=== PATIENT | male | born 1970 | race Caucasian/White ===

== ENCOUNTER 2024-10-25 09:28 | Inpatient (IN) ==
--- NOTE | 2024-10-25 09:42 | Emergency Department Note ---
Impression & Plan Abdominal pain, Splenic infarct, Encounter for smoking cessation counseling ED Provider Note NAME: MAIA GRAVES AGE: 53 SEX: M : 1970 ARRIVES VIA: Walk-In INFORMANT: Patient, ED PROVIDER(S): Lucas Bonner MD CHIEF COMPLAINT: Abdominal pain, splenic infarct MEDICAL DECISION MAKING: Patient presents is he was seen here yesterday and left AGAINST MEDICAL ADVICE prior to further evaluation and treatment due to concerns for splenic infarct. Repeat blood work was obtained. I did speak with the on-call hospitalist service in light of the patient's recent CT.. Given the patient's recent CT and inflammatory stranding ESR and CRP were added along with CT angiography of the abdomen pelvis. Patient Franklin shows a normal white count H&H and platelet count kidney function is unremarkable. ESR elevated at 40. CRP elevated 8.37. Urinalysis without evidence of obvious infection. 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 Dissection could appear similar however considered less likely. Given these findings I did speak with vascular surgery who stated that with regard to the vasculitis would recommend steroid management. With regard to the splenic infarct does recommend anticoagulation. Patient was ordered heparin. I did speak the on-call hospitalist service Dr. Stone and the patient was admitted to the medicine service. I counseled patient on smoking cessation for 3 minutes. Treatment options discussed and resources provided. Patient was receptive. Critical Care: I have personally spent 45 minutes of critical care time in direct management of this patient. This includes bedside care, interpretation of diagnostic studies, and testing, discussion with consultants, patient, and family members, and other require inpatient management activities. This 45 minutes is in excess of all separately billable procedures. Discussion w/ other healthcare providers: Dr. Skinner vascular surgery Dr. Stone inpatient medicine service Prior /Outside records reviewed: I did review the patient's blood work from yesterday which was reassuring patient has a normal white count H&H and platelet count kidney function was unremarkable with normal bicarb. Urinalysis without evidence of obvious infection. Patient CT of the abdomen pelvis showed moderate wedge-shaped hypoenhancing area at the inferior pole of the spleen suggestive of infarct. Patient also did have indeterminant flame Tory fat stranding seen about the celiac axis extending around the origin of the hepatic and splenic arteries may be reactive or reflective of vasculitis or possible irritation from the median arcuate ligament. No high-grade stenosis consider further evaluation with CTA. Differential diagnosis: Appendicitis, testicular torsion, UTI, diverticulitis, obstruction, renal colic, mesenteric adenitis, enteririts, PUD, pancreatitis, biliary pathology, hernia, volvulus, constipation, as well as other pathologies were considered. Diagnostics, as interpreted by me: ECG: None Cardiac monitoring: An order was placed for continuous cardiac monitoring. The monitor shows a rate of 85 with sinus rhythm. Patient was placed on pulse oximetry Medical decision rules: None Imaging studies: I informally interpreted the patient's CT angiography of the abdomen pelvis does not show evidence of obvious obstruction with formal report to follow. HPI: Patient presents due to concern for abdominal pain. Patient states he is currently without any significant pain but had had pain beginning on Monday was seen here yesterday diagnosed with a splenic infarct but left AGAINST MEDICAL ADVICE until he can come back today. Patient states he has had no blood in the stool no vomiting. The patient states that he was seen recently through an office or urgent care visit was told that he might have a "stomach bug." Patient states that he does have a prior history of diverticulitis but does not really report any blood in stool. Patient does smoke and chew tobacco. The patient does drink alcohol. Patient states that he does have a primary care physician through [facility] but is not seeing them in about 4 years time. Patient denies any chest pains or shortness of breath. Patient denies any falls or trauma. He does do heavy lifting for work but denies any obvious bulges masses or hernias. No testicular or scrotal swelling or pain no dysuria or hematuria. Patient states he currently does take some aspirin. Patient states that for his abdominal pain he did take some aspirin earlier in the week which did help with the symptoms. Patient does report a prior history of Lyme status post treatment. PAST MEDICAL HISTORY: See Below PAST SURGICAL HISTORY: See Below SOCIAL HISTORY: See Below HOME MEDICATIONS: See Below ALLERGIES: See Below VITALS: See Below PHYSICAL EXAMINATION: GENERAL: NAD, non-toxic. EYE EXAM: Normal conjunctiva. PERRL, no anisocoria and EOM's grossly intact w/o pain. OROPHARYNX: Moist mucus membranes, grossly normal dentition. NECK: Trachea midline, no stridor. Supple, no nuchal rigidity, no adenopathy, non-tender. No signs of meningismus. FROM of the neck with good chin to chest and neck extension. LUNGS: Clear to auscultation. Normal chest wall mechanics. HEART: NSR, no MRG. ABDOMEN: Abdomen soft, non-tender, no masses, no rebound or guarding. BACK: No CVA TTP. SKIN: No rashes and no bruising. UPPER EXTREMITIES: Upper extremities are grossly normal. LOWER EXTREMITIES: Grossly normal, no edema. NEURO EXAM: A&O x3, cranial nerves II-XII grossly intact, normal speech, moves all 4 extremities. Past Med/Surg History Problem List (Updated 10/25/24 @ 18:00 by Lucas Bonner MD) Encounter for smoking cessation counseling (Acute) Splenic infarct (Acute) Abdominal pain (Acute) Medical History Knee injury Lyme disease Rheumatic fever Diverticulitis Surgical History H/O tooth extraction Social History Smoking Status: Current every day smoker Tobacco Type: Cigarettes Hx Alcohol Use: Yes (8 to 10/day) Preferred Language: Malay Feels Safe at Home: Yes Allergies Allergies Allergy/AdvReac Type Severity Reaction Status Date / Time No Known Allergies Allergy Verified 07/16/22 21:50 Home Meds Home Medications Medication Instructions Recorded Confirmed omeprazole 20 mg capsule,delayed 20 mg PO BID 10/24/24 10/25/24 release ondansetron HCl 8 mg tablet 8 mg PO TID PRN Nausea 10/24/24 10/25/24 aspirin 1 tab PO DIRECTED 10/25/24 10/25/24 Results & Data (ED) Vital Signs Vital Signs - 24 hr 10/25/24 09:33 10/25/24 10:11 10/25/24 10:25 Temperature 36 C L Temperature Source Temporal Artery Scan Pulse Rate 76 75 Pulse Rate from SpO2 Sensor Respiratory Rate 18 Respiratory Effort / Characteristics Non-Labored Respiratory Depth Normal Respiratory Pattern Regular Blood Pressure 154/90 H Blood Pressure Mean 111 Pulse Oximetry 99 Oxygen Delivery Method Room Air Room Air Sepsis Recent Fever Within 48 Hours No Sepsis New/Unexplained Change in Mental Status N/A Sepsis Action Taken by Nursing No Action Required 10/25/24 11:00 10/25/24 11:15 10/25/24 12:00 Temperature Temperature Source Pulse Rate 69 70 65 Pulse Rate from SpO2 Sensor 69 69 65 Respiratory Rate 23 23 24 Respiratory Effort / Characteristics Respiratory Depth Respiratory Pattern Blood Pressure 148/99 H 150/90 H 142/93 H Blood Pressure Mean 115 110 101 Pulse Oximetry 98 98 Oxygen Delivery Method Room Air Room Air Sepsis Recent Fever Within 48 Hours Sepsis New/Unexplained Change in Mental Status Sepsis Action Taken by Nursing 10/25/24 12:30 Temperature Temperature Source Pulse Rate 82 Pulse Rate from SpO2 Sensor 82 Respiratory Rate 28 H Respiratory Effort / Characteristics Respiratory Depth Respiratory Pattern Blood Pressure 129/91 Blood Pressure Mean 117 Pulse Oximetry Oxygen Delivery Method Sepsis Recent Fever Within 48 Hours Sepsis New/Unexplained Change in Mental Status Sepsis Action Taken by [facility] Medications Current Medication List: was personally reviewed by me Laboratory Data Attestation: I reviewed the patient's lab results. 10/25/24 10:27 10/25/24 10:27 Lab Results 10/25/24 Range/Units 10:27 WBC 7.05 (4.8-10.8) K/ul RBC 5.23 (4.70-6.10) M/uL Hgb 17.4 (14.0-18.0) g/dl Hct 48.7 (42.0-52.0) % MCV 93.1 (80.0-100.0) fL MCH 33.3 (25.0-34.0) pg MCHC 35.7 (32.0-36.0) g/dL RDW Std Deviation 41.2 (36.4-46.3) fL RDW Coeff of Candi 12.0 (11.5-14.5) % Plt Count 243 (130-400) K/uL MPV 10.1 (9.4-12.4) fL Immature Gran % (Auto) 0.1 % Neut % (Auto) 65.5 % Lymph % (Auto) 22.0 % Bailey % (Auto) 9.4 % Eos % (Auto) 2.1 % Baso % (Auto) 0.9 % Neut # (Auto) 4.62 (1.40-6.50) K/uL Lymph # (Auto) 1.55 (1.20-3.40) K/uL Bailey # (Auto) 0.66 H (0.11-0.59) K/uL Eos # (Auto) 0.15 (0.00-0.50) K/uL Baso # (Auto) 0.06 (0.00-0.20) K/uL Immature Gran # (Auto) 0.01 (0.01-0.20) K/uL ESR 40 H (0-20) mm/hr PT 10.9 (9.0-12.0) Seconds INR 1.0 (0.9-1.1) Sodium 135 L (136-145) mmol/L Potassium 4.0 (3.5-5.1) mmol/L Chloride 98 (98-107) mmol/L Carbon Dioxide 27 (21-32) mmol/L Anion Gap 10 (3-11) BUN 12 (6-23) mg/dl Creatinine 0.89 (0.6-1.4) mg/dl Est Cr Clr Drug Dosing 97.1 ml/min eGFR 103.11 BUN/Creatinine Ratio 13.5 (10-20) Glucose 91 (70-99(Fasting)) mg/dl Calcium 9.9 (8.6-10.3) mg/dl Total Bilirubin 1.1 H (0.2-1.0) mg/dl AST 18 (13-39) U/L ALT 17 (7-52) U/L Alkaline Phosphatase 64 (34-104) U/L C-Reactive Protein 8.37 H (0-0.5) mg/dl Total Protein 8.3 (6.0-8.3) gm/dl Albumin 4.6 (3.4-5.0) gm/dl Globulin 3.7 (2.5-4.0) gm/dl Albumin/Globulin Ratio 1.2 (0.9-2) Lipase 28 (11-82) U/L Administered Medications Heparin Sodium/Dextrose (Heparin 01672 Unit/500 Ml D5w) 25,000 units in 500 mls @ 27 mls/hr IV .[id number] [facility]; Protocol Stop: 11/24/24 15:14 Last Admin: 10/25/24 16:19 Dose: 1,350 units/hr, 27 mls/hr Documented By: BENJAMIN Co-signed By: MARGOT Discontinued Medications Folic Acid (Folic Acid 1 Mg Tab) 1 mg PO ONE ONE Stop: 10/25/24 15:31 Last Admin: 10/25/24 16:14 Dose: 1 mg Documented By: BENJAMIN Heparin Sodium/Dextrose (Heparin Iv Adult Wt-Based Standard *No* Initial Bolus Protocol) 1 each IV ONE STA; Protocol Stop: 10/25/24 14:54 Last Admin: 10/25/24 16:26 Dose: Not Given Documented By: BENJAMIN Ioversol (Optiray 320 125ml) 120 ml IV ONCE ONE Stop: 10/25/24 11:29 Last Admin: 10/25/24 11:29 Dose: 120 ml Documented By: LUCIANO Methylprednisolone (Methylprednisolone 125 Mg/2 Ml Vial) 60 mg IV NOW STA Stop: 10/25/24 14:49 Last Admin: 10/25/24 16:13 Dose: 60 mg Documented By: BENJAMIN Thiamine HCl (Thiamine Hcl 100 Mg Tab) 100 mg PO ONE ONE Stop: 10/25/24 15:31 Last Admin: 10/25/24 16:13 Dose: 100 mg Documented By: BENJAMIN Imaging Data Radiologist's Impression: Abdomen/Pelvis CTA 10/25/24 10:18 CT angio abdomen pelvis w con CLINICAL HISTORY: 53 years-old Male with splenic infarct, stranding at celiac on prior CT acute upper abdominal pain in a patient with an acute splenic infarct COMPARISON STUDY: 10/24/2024 TECHNIQUE: Following the IV administration of 120 cc of Optiray, CT angiogram of the abdomen and pelvis was performed from the lung bases the proximal femora. Images are reviewed in the axial, sagittal, and coronal planes. 3-D MIPS images are created and assessed. All measurements were obtained according to NASCET criteria. IV contrast was administered without complication. A dose lowering technique was utilized adhering to the principles of ALARA. CT DOSE: 750.41 mGy.cm FINDINGS: CTA: The imaged heart is unremarkable. The descending thoracic aorta is within normal limits. Mild atherosclerosis of the abdominal aorta without aneurysm or dissection. Patent iliac and imaged femoral arteries. Unremarkable appearance of the superior mesenteric, renal and inferior mesenteric arteries. There is wall thickening with adjacent inflammatory stranding involving the celiac trunk and origins of the splenic and common hepatic arteries these vessels also are irregular with areas of multifocal mild stenosis. There is a saccular 11 x 8 x 5 mm aneurysm noted involving the caudal aspect of the celiac trunk on image 68 series 3. No evidence of aneurysm rupture. CT ABDOMEN/pelvis: Clear lung bases. No pneumatosis or pneumoperitoneum. Acute splenic infarct appears unchanged in size measuring approximately 4 cm. Unremarkable spleen, adrenal glands and pancreas. Vicarious excretion of contrast in the gallbladder with probable mild fundal adenomyomatosis. There are a few subcentimeter hepatic cysts. Liver is otherwise unremarkable. Unremarkable kidneys without hydronephrosis. Decompressed urinary bladder with wall thickening. Unremarkable prostate. No lymphadenopathy. No bowel obstruction or bowel wall thickening. Gastric fundal diverticulum measures 2 cm. Colonic diverticulosis without acute diverticulitis. Normal appendix. No acute fracture. IMPRESSION: 1. Unchanged size and appearance of the acute splenic infarct 2. 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 An acute dissection could appear similarly however considered less likely. 3. Colonic diverticulosis without acute diverticulitis. ACT 112: Negative or not required by law. The above report was generated using voice recognition software. It may contain grammatical, syntax or spelling errors. Electronically signed by: Dominik Miramontes M.D. 10/25/2024 12:17 PM Discharge Plan Visit Data Chief Complaint: Abdominal Pain Stated Complaint: ABDOMINAL PAIN, SPLENIC INFARCT ED Provider: Lucas Bonner Discharge Problem: Abdominal pain, Splenic infarct, Encounter for smoking cessation counseling Discharge Instructions Interventions: ED Discharge Assessment Last Done: 10/25/24 16:41 Discharge Problem: Abdominal pain Qualifiers: Abdominal location: unspecified location Qualified Code(s): R10.9 - Unspecified abdominal pain
[2024-10-25 10:52] LABS: Basophils # (auto) 0.06 K/uL (0.00-0.20); Basophils % (auto) 0.9 %; Eosinophils # (auto) 0.15 K/uL (0.00-0.50); Eosinophils % (auto) 2.1 %; Hematocrit (blood only) 48.7 % (42.0-52.0); Hemoglobin 17.4 g/dl (14.0-18.0); Immature Granulocytes # (auto) 0.01 K/uL (0.01-0.20); Immature Granulocytes % (auto) 0.1 %; Lymphocytes # (auto) 1.55 K/uL (1.20-3.40); Mean Corpuscular Hemoglobin 33.3 pg (25.0-34.0); Mean Corpuscular Hgb Conc 35.7 g/dL (32.0-36.0); Mean Corpuscular Volume 93.1 fL (80.0-100.0); Mean Platelet Volume 10.1 fL (9.4-12.4); Monocytes # (auto) 0.66 K/uL (0.11-0.59); Monocytes % (auto) 9.4 %; Neutrophils # (auto) 4.62 K/uL (1.40-6.50); Neutrophils % (auto) 65.5 %; Platelet Count 243 K/uL (130-400); RDW Standard Deviation 41.2 fL (36.4-46.3); Red Blood Count 5.23 M/uL (4.70-6.10); White Blood Count 7.05 K/ul (4.8-10.8)
[2024-10-25 11:03] LABS: Albumin Globulin Ratio 1.2 (0.9-2); Albumin Level 4.6 gm/dl (3.4-5.0); BUN Creatinine Ratio 13.5 (10-20); Bilirubin,Total 1.1 mg/dl (0.2-1.0); C Reactive Protein 8.37 mg/dl (0-0.5); Calcium 9.9 mg/dl (8.6-10.3); Creatinine Clr Calc Pharmacy 97.1 ml/min; Globulin 3.7 gm/dl (2.5-4.0); Total Protein 8.3 gm/dl (6.0-8.3)
[2024-10-25] MEDS: OPTIRAY 320 125ml IV ONE (11:29)
--- NOTE | 2024-10-25 12:36 | CT Scan Report ---
CT angio abdomen pelvis w con CLINICAL HISTORY: 53 years-old Male with splenic infarct, stranding at celiac on prior CT acute up per abdominal pain in a patient with an acute splenic infarct COMPARISON STUDY: 10/24/2024 TECHNIQUE: Following the IV administration of 120 cc of Optiray, CT angiogram of the abdomen and pelv is was performed from the lung bases the proximal femora. Images are reviewed in the axial, sagittal, and coronal planes. 3-D MIPS images are created and assessed. All measurements were obtained accordi ng to NASCET criteria. IV contrast was administered without complication. A dose lowering technique was utilized adhering to the principles of ALARA. CT DOSE: 750.41 mGy.cm FINDINGS: CTA: The imaged heart is unremarkable. The descending thoracic aorta is within normal limits. Mild at herosclerosis of the abdominal aorta without aneurysm or dissection. Patent iliac and imaged femoral arteries. Unremarkable appearance of the superior mesenteric, renal and inferior mesenteric arteries. There is wall thickening with adjacent inflammatory stranding involving the celiac trunk and origins of the splenic and common hepatic arteries these vessels also are irregular with areas of multifocal mild stenosis. There is a saccular 11 x 8 x 5 mm aneurysm noted involving the caudal aspect of the c eliac trunk on image 68 series 3. No evidence of aneurysm rupture. CT ABDOMEN/pelvis: Clear lung bases. No pneumatosis or pneumoperitoneum. Acute splenic infarct appear s unchanged in size measuring approximately 4 cm. Unremarkable spleen, adrenal glands and pancreas. V icarious excretion of contrast in the gallbladder with probable mild fundal adenomyomatosis. There ar e a few subcentimeter hepatic cysts. Liver is otherwise unremarkable. Unremarkable kidneys without hydronephrosis. Decompressed urinary bladder with wall thickening. Unrem arkable prostate. No lymphadenopathy. No bowel obstruction or bowel wall thickening. Gastric fundal d iverticulum measures 2 cm. Colonic diverticulosis without acute diverticulitis. Normal appendix. No a cute fracture. IMPRESSION: 1. Unchanged size and appearance of the acute splenic infarct 2. 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 An acute dissection could appear similarly however considered less li zheng. 3. Colonic diverticulosis without acute diverticulitis. ACT 112: Negative or not required by law. The above report was generated using voice recognition software. It may contain grammatical, syntax o r spelling errors. Electronically signed by: Dominik Miramontes M.D. 10/25/2024 12:17 PM
[2024-10-25] MEDS ORDERED: ACETAMINOPHEN 325 MG TAB PO PRN (14:21)
[2024-10-25] MEDS ORDERED: ALUMINUM/MAGNESIUM SUSP 30 ML UDC PO PRN (14:21)
[2024-10-25] MEDS ORDERED: ONDANSETRON INJ 2 MG/ML 2 ML VIAL IV PRN (14:21)
[2024-10-25] MEDS ORDERED: MAGNESIUM HYDROXIDE SUSP 30 ML UDC PO PRN (14:21)
[2024-10-25] MEDS ORDERED: LORazepam 1 MG TAB PO PRN (14:49)
[2024-10-25] MEDS ORDERED: Ativan PO Alcohol Withdrawal--Active Protocol PO PRN (14:49)
--- NOTE | 2024-10-25 14:52 | History & Physical Report ---
Date of Service October 25, 2024 Assessment & Plan (1) Splenic infarct: (2) Abdominal pain: Plan Admitting CTA abdomen/pelvis. 1. Unchanged size and appearance of the acute splenic infarct 2. 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 An acute dissection could appear similarly however considered less likely. 3. Colonic diverticulosis without acute diverticulitis. Splenic infarct/Celiac saccular aneurysm: Patient with no abdominal pain today, control nausea. Vascular consult. Will send lipid profile, A1c, continue with telemetry monitoring. Vasculitis: As noted in CTA abdomen pelvis as above. ESR and CRP elevated. Will send ISIS and ANCA. Will start the patient on steroid, consult rheumatology for further guidance on management. Chronic alcohol abuse: Drinks 12 beers a day, last drink about 4 to 5 days ago per patient. Denies h/o seizure or withdrawal. Tobacco abuse: Patient smokes 4 to 5 cigarettes a day, denies nicotine patch. Counseled on cessation of alcohol/tobacco. DVT prophylaxis: Heparin subcu Full code History of Present Illness Chief Complaint: Lower abdominal pain Primary Care Provider: SOHAM Barrios 53-year-old male with PMH of diverticulitis, ongoing tobacco use [4 to 5 cigarettes a day for more than 40 years] ongoing alcohol abuse [12 beers a day, last alcohol 5 days ago per patient] who presented to the ED on 08/23 for abdominal pain & underwent CT of abdomen and pelvis which showed splenic infarct of inferior pole and was advised to get admitted for further workup. Patient had some work to be taken care of at home, hence he left AMA. He came in today to the ED to complete the workup. He denies any daily pain today though. Patient denies fever/sore throat/cough/chest pain/nausea/vomiting/pain or burning while passing urine/acute changes in his bowel habit. Patient reports appetite being okay. Patient smokes 4 to 5 cigarettes a day for more than 40 years. Drinks 12 beers a day, last drink 5 days ago. Patient denies recreational drug use. Medications reviewed with the patient at bedside. Full code Plan of care discussed with the patient and his at bedside, they voiced u nderstanding was agreeable to plan of care. Allergies Allergy/AdvReac Type Severity Reaction Status Date / Time No Known Allergies Allergy Verified 07/16/22 21:50 Home Medications Medication Instructions Recorded Confirmed Type omeprazole 20 mg capsule,delayed 20 mg PO BID 10/24/24 10/25/24 History release ondansetron HCl 8 mg tablet 8 mg PO TID PRN Nausea 10/24/24 10/25/24 History aspirin 1 tab PO DIRECTED 10/25/24 10/25/24 History Past Med/Surg History Problem List Splenic infarct (Acute) Abdominal pain (Acute) Social History Smoking Status: Current every day smoker Tobacco Type: Cigarettes Preferred Language: Montserratian Feels Safe at Home: Yes Review of Systems Review of Systems: Negative otherwise mentioned in HPI. Physical Exam Physical Exam: GENERAL: Alert and oriented x3. NAD, on RA. HEENT: No pallor, no icterus. Pupils equal, round and reactive to light. Oral mucosa moist. NECK: No JVD, no neck masses. HEART: S1 and S2 heard. Regular rate and rhythm. No murmur, no gallop. RESPIRATORY SYSTEM: Normal AP diameter. No accessory muscle use. No wheezing, no crackles. ABDOMEN: Soft, bowel sounds present, nontender, no distention. CENTRAL NERVOUS SYSTEM: No facial droop. Speech is clear. Obeys simple commands. Moves extremities. EXTREMITIES: No edema, no erythema seen. Results & Data Results & Data Vital Signs (Past 12 Hours) Vital Signs Temp Pulse Resp BP Pulse Ox O2 Del Method 10/25/24 12:30 82 28 H 129/91 10/25/24 12:00 65 24 142/93 H 10/25/24 11:15 70 23 150/90 H 98 Room Air 10/25/24 11:00 69 23 148/99 H 98 Room Air 10/25/24 10:25 75 10/25/24 10:11 Room Air 10/25/24 09:33 36 C L 76 18 154/90 H 99 Room Air (2) Abdominal pain Abdominal location: generalized Qualified Code(s): R10.84 - Generalized abdominal pain
[2024-10-25 15:45] LABS: Appearance Urine Clear (Clear); Bilirubin Urine Negative (Negative); Blood Urine Negative (Negative); Color Urine Yellow; Glucose Urine UA Negative (Negative); Ketones Urine Trace (Negative); Leukocyte Esterase Urine Negative (Negative); Nitrite Urine Negative (Negative); Protein Urine Negative (Negative); Specific Gravity Urine > 1.045 (1.000-1.030); Urobilinogen Urine Negative (Negative)
[2024-10-25 15:50] LABS: Prothrombin Time 10.9 Seconds (9.0-12.0)
[2024-10-25 16:11] LABS: Lyme Screen Rflx Confirmation Positive (Negative)
[2024-10-25] MEDS: methylPREDNISolone 125 MG/2 ML VIAL IV STA (16:13)
[2024-10-25] MEDS: THIAMINE HCL 100 MG TAB PO ONE (16:13)
[2024-10-25] MEDS: FOLIC ACID 1 MG TAB PO ONE (16:14)
[2024-10-25] MEDS: HEPARIN 25000 UNIT/500 ML D5W 25,000 UNITS/500 ML BAG IV SCH (16:19)
[2024-10-25] MEDS: Heparin IV Adult Wt-Based Standard *NO* INITIAL Bolus Protocol IV STA (16:26)
[2024-10-25 16:45] LABS: Lyme Ab IgG 2nd Tier Confirm Positive (Negative); Lyme Ab IgM 2nd Tier Confirm Positive (Negative)
--- NOTE | 2024-10-25 17:23 | Rheumatology Consultation ---
Rheumatology Consultation DOS October 25, [address] 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 This patient does not have additional features often seen with a systemic vasculitis. He was in his usual state of health until the discomfort developed. Importantly, I do not identify additional features of systemic vasculitis such as rash, scleritis. His renal function is stable and urinalysis does not have evidence of blood or protein Inflammatory markers are noted. To be complete, recommend CT of chest to evaluate for potential pulmonary involvement. Agree with steroids and assistance with vascular sx No indication for systemic immunosuppression acutely. I will follow-up upon discharge to assist with additional steroid management Please contact me for additional questions or concerns. History of Present Illness Attending Physician: Chacha Stone MD History of Present Illness This patient is a 53-year-old man who was in his usual state of health until 10/21/2024 when he had sudden onset left abdominal pain that radiated to the right lower aspect which began at 10 AM. He denies any recent illness or new medication prior to the onset of symptoms. Denied any different dietary interventions over the weekend. On Monday, 10/23, he presented to urgent care and was told that he had a stomach bug. , he presented to the admission was recommended but the patient could not stay and returns today. Currently, he is pain-free. He describes previous discomfort as sharp and intense. He denies nausea or vomiting. Denies diarrhea. He denies new or different shortness of breath or cough he denies hemoptysis. Reports an occasional cough from time to time which is not new. He has had occasional blood-tinged nasal discharge in the morning when blowing the nose for the first time but denies additional bloody noses. Denies any pain at his nose. He denies skin rashes. Denies joint swelling. Denies history concerning for uveitis. He was in his usual state of health until symptoms began at 10 AM on 10/21/2024 Allergies Allergy/AdvReac Type Severity Reaction Status Date / Time No Known Allergies Allergy Verified 07/16/22 21:50 Home Medications Medication Instructions Recorded Confirmed Type omeprazole 20 mg capsule,delayed 20 mg PO BID 10/24/24 10/25/24 History release ondansetron HCl 8 mg tablet 8 mg PO TID PRN Nausea 10/24/24 10/25/24 History aspirin 1 tab PO DIRECTED 10/25/24 10/25/24 History Patient History Medical History (Updated 10/25/24 @ 17:26 by Ayaan Busby DO) Diverticulitis Knee injury Lyme disease Rheumatic fever Surgical History (Updated 10/25/24 @ 17:26 by Ayaan Busby DO) H/O tooth extraction Social History (Updated 10/25/24 @ 17:26 by Ayaan Busby DO) Smoking Status: Current every day smoker Tobacco Type: Cigarettes Hx Alcohol Use: Yes (8 to 10/day) Preferred Language: Greek Feels Safe at Home: Yes Review of Systems Review of Systems: Denies fevers or chills. Denies chest pain or shortness of breath. Denies nausea or vomiting. Denies diarrhea or constipation. Denies dark or black stools. Denies sudden weight changes. Physical Exam Physical Exam: General: No acute distress Eyes: No scleritis Mouth: Oral ulcerations Cardiovascular: Heart regular, no rubs Pulmonary: Clear to auscultation Abdomen: Soft, nontender, positive bowel sounds. No obvious mass Skin: No purpuric lesions identified. No splinter hemorrhages identified at the extremities; no palmar or plantar lesions identified Musculoskeletal: No synovitis. No effusions Results & Data Vital Signs (Past 12 Hours) Vital Signs Temp Pulse Pulse Resp BP BP Pulse Ox 10/25/24 16:11 36.7 C 75 22 127/88 97 10/25/24 15:14 78 10/25/24 12:30 82 28 H 129/91 10/25/24 12:00 65 24 142/93 H 10/25/24 11:15 70 23 150/90 H 98 10/25/24 11:00 69 23 148/99 H 98 10/25/24 10:25 75 10/25/24 10:11 10/25/24 09:33 36 C L 76 18 154/90 H 99 O2 Del Method 10/25/24 16:11 Room Air 10/25/24 15:14 10/25/24 12:30 10/25/24 12:00 10/25/24 11:15 Room Air 02/14/25 11:00 Room Air 10/25/24 10:25 10/25/24 10:11 Room Air 10/25/24 09:33 Room Air Diagnostic Findings Abdomen/pelvis CTA, 10/25/2024: IMPRESSION: 1. Unchanged size and appearance of the acute splenic infarct 2. 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 An acute dissection could appear similarly however considered less likely. 3. Colonic diverticulosis without acute diverticulitis. Results CMP Results: Sodium 135 mmol/L (136-145) L 10/25/24 Potassium 4.0 mmol/L (3.5-5.1) 10/25/24 Chloride 98 mmol/L (98-107) 10/25/24 Carbon Dioxide 27 mmol/L (21-32) 10/25/24 Anion Gap 10 (3-11) 10/25/24 BUN 12 mg/dl (6-23) 10/25/24 Creatinine 0.89 mg/dl (0.6-1.4) 10/25/24 eGFR 103.11 10/25/24 BUN/Creatinine Ratio 13.5 (10-20) 10/25/24 Glucose 91 mg/dl (70-99(Fasting)) 10/25/24 Calcium 9.9 mg/dl (8.6-10.3) 10/25/24 Total Bilirubin 1.1 mg/dl (0.2-1.0) H 10/25/24 AST 18 U/L (13-39) 10/25/24 ALT 17 U/L (7-52) 10/25/24 Alkaline Phosphatase 64 U/L (34-104) 10/25/24 Total Protein 8.3 gm/dl (6.0-8.3) 10/25/24 Albumin 4.6 gm/dl (3.4-5.0) 10/25/24 Globulin 3.7 gm/dl (2.5-4.0) 10/25/24 Albumin/Globulin Ratio 1.2 (0.9-2) 10/25/24 Results Rheum Results - ESR: ESR 40 mm/hr (0-20) H 10/25/24 10:27 Results Rheum Results - CRP: CRP 8.37 mg/dl (0-0.5) H 10/25/24 10:27 Results CBC w Diff Results: RBC 5.23 M/uL (4.70-6.10) 10/25/24 WBC 7.05 K/ul (4.8-10.8) 10/25/24 Hgb 17.4 g/dl (14.0-18.0) 10/25/24 Hct 48.7 % (42.0-52.0) 10/25/24 MCV 93.1 fL (80.0-100.0) 10/25/24 MCH 33.3 pg (25.0-34.0) 10/25/24 MCHC 35.7 g/dL (32.0-36.0) 10/25/24 RDW Standard Deviation 41.2 fL (36.4-46.3) 10/25/24 RDW Coefficient of Variation 12.0 % (11.5-14.5) 10/25/24 Plt Count 243 K/uL (130-400) 10/25/24 MPV 10.1 fL (9.4-12.4) 10/25/24 Neutrophils (%) (Auto) 65.5 % 10/25/24 Lymphocytes (%) (Auto) 22.0 % 10/25/24 Monocytes # (Auto) 0.66 K/uL (0.11-0.59) H 10/25/24 Eosinophils # (Auto) 0.15 K/uL (0.00-0.50) 10/25/24 Immature Granulocyte % (Auto) 0.1 % 10/25/24 Neutrophils # (Auto) 4.62 K/uL (1.40-6.50) 10/25/24 Lymphocytes # (Auto) 1.55 K/uL (1.20-3.40) 10/25/24 Monocytes # (Auto) 0.66 K/uL (0.11-0.59) H 10/25/24 Eosinophils # (Auto) 0.15 K/uL (0.00-0.50) 10/25/24 Basophils # (Auto) 0.06 K/uL (0.00-0.20) 10/25/24 Immature Granulocyte # (Auto) 0.01 K/uL (0.01-0.20) 5 Results Urinalysis: Urine Color Yellow 10/25/24 Urine Appearance Clear (Clear) 10/25/24 Urine pH 6.0 (4.5-7.5) 10/25/24 Ur Specific [place] > 1.045 (1.000-1.030) H 10/25/24 Urine Protein Negative (Negative) 10/25/24 Urine Glucose (UA) Negative (Negative) 10/25/24 Urine Ketones Trace (Negative) H 10/25/24 Urine Blood Negative (Negative) 10/25/24 Urine Nitrite Negative (Negative) 10/25/24 Urine Bilirubin Negative (Negative) 10/25/24 Urine Urobilinogen Negative (Negative) 10/25/24 Ur Leukocyte Esterase Negative (Negative) 10/25/24 Urine Culture: No Data to Display PG Care Time/CCT Total # of Minutes Spent Total Time Spent with Patient: Total time spent is greater than 50% in coordination of care (as documented) at patient's floor/unit and/or counseling patient: Coding Level of Care Code 97099 IN/OBS CONSULT LVL 4,60M Diagnoses Splenic infarct D73.5 Abdominal pain R10.84 Abdominal location: generalized
[2024-10-25] MEDS ORDERED: HEPARIN SOD 5,000 UNIT/0.5 ML VIAL SQ SCH (21:00)
[2024-10-26 08:15] LABS: Hematocrit (blood only) 47.4 % (42.0-52.0); Hemoglobin 16.7 g/dl (14.0-18.0); Mean Corpuscular Hemoglobin 32.7 pg (25.0-34.0); Mean Corpuscular Hgb Conc 35.2 g/dL (32.0-36.0); Mean Corpuscular Volume 92.8 fL (80.0-100.0); Mean Platelet Volume 11.2 fL (9.4-12.4); Platelet Count 258 K/uL (130-400); RDW Coefficient of Variation 11.9 % (11.5-14.5); RDW Standard Deviation 41.1 fL (36.4-46.3); Red Blood Count 5.11 M/uL (4.70-6.10); White Blood Count 6.36 K/ul (4.8-10.8)
[2024-10-26 08:40] LABS: Albumin Globulin Ratio 1.2 (0.9-2); Albumin Level 4.2 gm/dl (3.4-5.0); BUN Creatinine Ratio 13.3 (10-20); Bilirubin,Total 0.7 mg/dl (0.2-1.0); Calcium 9.7 mg/dl (8.6-10.3); Chol HDL Ratio 3.1 (0-5); Globulin 3.6 gm/dl (2.5-4.0); Magnesium 2.1 mg/dl (1.7-2.4); Potassium 4.5 mmol/L (3.5-5.1); Total Protein 7.8 gm/dl (6.0-8.3)
[2024-10-26] MEDS: predniSONE 20 MG TAB PO SCH (09:42)
[2024-10-26] MEDS: THIAMINE HCL 100 MG TAB PO SCH (09:42)
[2024-10-26] MEDS: FOLIC ACID 1 MG TAB PO SCH (09:42)
[2024-10-26] MEDS: DOXYCYCLINE HYCLATE 100 MG CAP PO SCH (09:45)
[2024-10-26 09:48] LABS: ANTI-Xa, UFH(UnfractionatedHep 0.87 IU/ml (0.3-0.7)
[2024-10-26 09:49] LABS: Estimated Average Glucose 105 mg/dl; Hemoglobin A1C 5.3 % (4.5-5.6)
--- NOTE | 2024-10-26 10:59 | Hospitalist Progress Note ---
Date of Service October 26, 2024 Assessment & Plan (1) Splenic infarct: (2) Abdominal pain: Plan Splenic infarct/Celiac saccular aneurysm: Vasculitis: CTA abdomen/pelvis on 10/25/24 noted unchanged size/appearance of acute splenic infarct seen on CT from 10/24/24, findings suggestive of acute vasculitis (involving celiac trunk, proximal common hepatic and splenic arteries) with 11mm celiac saccular aneurysm ESR and CRP elevated. ISIS and ANCA pending Lyme test, Lyme IgG and IgM positive. He reports h/o lyme disease in the past. However, will treat with doxycycline Continue prednisone and hep gtt Rheum eval and recs noted Reviewed with Vasc surgeon Dr Skinner. No recs/intervention besides treating his vasculitis/splenic infarct Will get Gen surg eval regarding splenic infarct. Chronic alcohol abuse: Tobacco abuse: Drinks 12 beers a day, last drink was on day Denies h/o seizure or withdrawal. Smokes 4 to 5 cigarettes a day Counseled extensively regarding smoking cessation and alcohol use DVT prophylaxis: On hep gtt Full code I spent a total of 50 minutes coordinating, documenting and providing care for this patient excluding time spent in performance of separately billed services Admission and Anticipated Discharge Date Admission Date: October 25, 2024 Subjective Patient seen and examined Reported he had moderate to severe abd pain that started on monday, constant, aching, wraps around the abd. He was seen in ER on 10/24/24 but left AMA and came back on 10/25/24 Denied any fever, chills, nausea, vomiting, diarrhea, melena/hematochezia Reports occasional mild cough but none at this time. Denied SOB, chest pain Drinks up to 8-12 beer daily. Last drink was on 6 days ago Smokes 4-5 cigarette per day Reports no abdominal pain at this time Physical Exam Constitutional: + well hydrated; no acute distress Eyes: PERRL, conjunctivae normal, anicteric sclerae ENMT: external ear and nose normal, oropharynx normal Respiratory: normal respiratory effort, lungs clear to auscultation Cardiovascular: Rate/Rhythm: regular rate and regular rhythm Gastrointestinal (Abdomen): normal bowel sounds, soft, nontender, no hepatosplenomegaly Musculoskeletal: no cyanosis or clubbing, extremities motor strength 5/5 Neurologic: PERRL, EOMI, accommodation nl, no face palsy, no dysarthria Psychiatric: A+Ox3, euthymic affect Results & Data Results & Data Vital Signs (Past 12 Hours) Vital Signs Temp Pulse Resp BP Pulse Ox O2 Del Method 10/26/24 07:00 36.5 C 74 18 110/60 97 Room Air 10/26/24 03:33 36.4 C L 88 21 100/66 96 Room Air 10/25/24 23:34 36.6 C 78 18 139/92 96 Room Air Laboratory Results Abnormal lab results 10/25/24 10/25/24 10/25/24 Range/Units 10:27 14:52 15:18 ESR 40 H (0-20) mm/hr Heparin Anti-Xa, Unfract (0.3-0.7) IU/ml Glucose (70-99(Fasting)) mg/dl Ur Specific [place] > 1.045 H (1.000-1.030) Urine Ketones Trace H (Negative) Lyme Disease Screen Positive H (Negative) Lyme Tier 2 IgG Confirm Positive H (Negative) Lyme Tier 2 IgM Confirm Positive H (Negative) 10/26/24 Range/Units 06:31 ESR (0-20) mm/hr Heparin Anti-Xa, Unfract 0.87 H* (0.3-0.7) IU/ml Glucose 106 H (70-99(Fasting)) mg/dl Ur Specific [place] (1.000-1.030) Urine Ketones (Negative) Lyme Disease Screen (Negative) Lyme Tier 2 IgG Confirm (Negative) Lyme Tier 2 IgM Confirm (Negative) (2) Abdominal pain Abdominal location: unspecified location Qualified Code(s): R10.9 - Unspec ified abdominal pain
[2024-10-26 17:33] LABS: ANTI-Xa, UFH(UnfractionatedHep 0.55 IU/ml (0.3-0.7)
--- NOTE | 2024-10-26 17:37 | Surgery Consultation ---
Date of Consultation October 26, 2024 Assessment & Plan (1) Splenic infarct: (2) Abdominal pain: Plan 53-year-old with splenic infarct and vasculitis at the splenic trunk. There is no surgical intervention recommended. I would recommend treating the vasculitis and monitoring. Again, no surgical intervention is required for a small splenic infarct. History of Present Illness Reason for Consultation: Splenic infarct Requesting Physician: Alis Adan MD Attending Physician: Alis Adan MD History of Present Illness 53-year-old gentleman presents with a 5-day history of abdominal pain. He has had diverticulitis in the past but no pain like this. This pain was in the upper abdomen stretching to both sides and into his back. He did have nausea. CT scan demonstrates a inferior pole splenic infarct and vasculitis around the c eliac trunk. He is now on a heparin drip and prednisone. He denies any current pain. He denies fevers and chills. Allergies Allergy/AdvReac Type Severity Reaction Status Date / Time No Known Allergies Allergy Verified 07/16/22 21:50 Home Medications Medication Instructions Recorded Confirmed Type omeprazole 20 mg capsule,delayed 20 mg PO BID 10/24/24 10/25/24 History release ondansetron HCl 8 mg tablet 8 mg PO TID PRN Nausea 10/24/24 10/25/24 History ibuprofen 2 cap PO BID 10/25/24 10/25/24 History Patient History Medical History Knee injury Lyme disease Rheumatic fever Diverticulitis Surgical History H/O tooth extraction Social History Smoking Status: Current every day smoker Tobacco Type: Cigarettes Cigarettes Per Day: 4-5; Do You Dip or Chew Tobacco: Yes; Hx Alcohol Use: Yes Alcohol type: beer Hx Substance Use: No Preferred Language: Mozambican Communication Ability: Effective Digital Production Manager Required: No Beliefs That Will Affect Care: None Current Living Situation: Spouse and Family Feels Safe at Home: Yes Assistive Devices: None Review of Systems Review of Systems: All systems reviewed & are unremarkable except as noted in HPI & below Physical Exam Constitutional: WD/WN, vitals as above Eyes: PERRL, conjunctivae normal, anicteric sclerae Neck: trachea midline, no thyromegaly Respiratory: normal respiratory effort; no respiratory distress and no labored breathing Cardiovascular: Rate/Rhythm: regular rate and regular rhythm Gastrointestinal (Abdomen): Inspection/Auscultation: abdomen normal to inspection; abdomen not distended Percussion/Palpation: abdomen soft; abdomen nontender, no guarding and abdomen not rigid Skin: no rashes, warm and dry Psychiatric: A+Ox3, euthymic affect Results & Data Vital Signs (Past 12 Hours) Vital Signs Temp Pulse Pulse Resp BP Pulse Ox O2 Del Method 10/26/24 16:47 37.0 C 74 20 111/72 94 Room Air 10/26/24 14:00 82 10/26/24 12:00 36.6 C 88 115/63 92 Room Air 10/26/24 09:00 68 10/26/24 09:00 Room Air 10/26/24 07:00 36.5 C 74 18 110/60 97 Room Air Laboratory Results 10/26/24 10/26/24 10/25/24 Range/Units 17:03 06:31 22:29 WBC 6.36 (4.8-10.8) K/ul RBC 5.11 (4.70-6.10) M/uL Hgb 16.7 (14.0-18.0) g/dl Hct 47.4 (42.0-52.0) % MCV 92.8 (80.0-100.0) fL MCH 32.7 (25.0-34.0) pg MCHC 35.2 (32.0-36.0) g/dL RDW Std Deviation 41.1 (36.4-46.3) fL RDW Coeff of Candi 11.9 (11.5-14.5) % Plt Count 258 (130-400) K/uL MPV 11.2 (9.4-12.4) fL Heparin Anti-Xa, Unfract 0.55 0.87 H* 0.50 (0.3-0.7) IU/ml Sodium 136 (136-145) mmol/L Potassium 4.5 (3.5-5.1) mmol/L Chloride 98 (98-107) mmol/L Carbon Dioxide 28 (21-32) mmol/L Anion Gap 10 (3-11) BUN 12 (6-23) mg/dl Creatinine 0.90 (0.6-1.4) mg/dl Est Cr Clr Drug Dosing 96.0 ml/min eGFR 102.76 BUN/Creatinine Ratio 13.3 (10-20) Glucose 106 H (70-99(Fasting)) mg/dl Estimat Average Glucose 105 mg/dl Hemoglobin A1c 5.3 (4.5-5.6) % Calcium 9.7 (8.6-10.3) mg/dl Phosphorus 4.0 (2.5-4.9) mg/dl Magnesium 2.1 (1.7-2.4) mg/dl Total Bilirubin 0.7 (0.2-1.0) mg/dl AST 17 (13-39) U/L ALT 16 (7-52) U/L Alkaline Phosphatase 59 (34-104) U/L Total Protein 7.8 (6.0-8.3) gm/dl Albumin 4.2 (3.4-5.0) gm/dl Globulin 3.6 (2.5-4.0) gm/dl Albumin/Globulin Ratio 1.2 (0.9-2) Triglycerides 52 (0-150) mg/dl Cholesterol 185 (0-200) mg/dl LDL Cholesterol, Calc 115 mg/dl VLDL Cholesterol, Calc 10 (0-30) mg/dl HDL Cholesterol 60 mg/dl Cholesterol/HDL Ratio 3.1 (0-5) Diagnostic Findings CT angio abdomen pelvis w con CLINICAL HISTORY: 53 years-old Male with splenic infarct, stranding at celiac on prior CT acute upper abdominal pain in a patient with an acute splenic infarct COMPARISON STUDY: 10/24/2024 TECHNIQUE: Following the IV administration of 120 cc of Optiray, CT angiogram of the abdomen and pelvis was performed from the lung bases the proximal femora. Images are reviewed in the axial, sagittal, and coronal planes. 3-D MIPS images are created and assessed. All measurements were obtained according to NASCET criteria. IV contrast was administered without complication. A dose lowering technique was utilized adhering to the principles of ALARA. CT DOSE: 750.41 mGy.cm FINDINGS: CTA: The imaged heart is unremarkable. The descending thoracic aorta is within normal limits. Mild atherosclerosis of the abdominal aorta without aneurysm or dissection. Patent iliac and imaged femoral arteries. Unremarkable appearance of the superior mesenteric, renal and inferior mesenteric arteries. There is wall thickening with adjacent inflammatory stranding involving the celiac trunk and origins of the splenic and common hepatic arteries these vessels also are irregular with areas of multifocal mild stenosis. There is a saccular 11 x 8 x 5 mm aneurysm noted involving the caudal aspect of the celiac trunk on image 68 series 3. No evidence of aneurysm rupture. CT ABDOMEN/pelvis: Clear lung bases. No pneumatosis or pneumoperitoneum. Acute splenic infarct appears unchanged in size measuring approximately 4 cm. Unremarkable spleen, adrenal glands and pancreas. Vicarious excretion of contrast in the gallbladder with probable mild fundal adenomyomatosis. There are a few subcentimeter hepatic cysts. Liver is otherwise unremarkable. Unremarkable kidneys without hydronephrosis. Decompressed urinary bladder with wall thickening. Unremarkable prostate. No lymphadenopathy. No bowel obstruction or bowel wall thickening. Gastric fundal diverticulum measures 2 cm. Colonic diverticulosis without acute diverticulitis. Normal appendix. No acute fracture. IMPRESSION: 1. Unchanged size and appearance of the acute splenic infarct 2. 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 An acute dissection could appear similarly however considered less likely. 3. Colonic diverticulosis without acute diverticulitis. ACT 112: Negative or not required by law. The above report was generated using voice recognition software. It may contain grammatical, syntax or spelling errors. Electronically signed by: Dominik Miramontes M.D. 10/25/2024 12:17 PM (2) Abdominal pain Abdominal location: unspecified location Qualified Code(s): R10.9 - Unspecified abdominal pain
[2024-10-27 07:11] LABS: ANTI-Xa, UFH(UnfractionatedHep 0.57 IU/ml (0.3-0.7)
[2024-10-27 09:17] LABS: BUN Creatinine Ratio 19.8 (10-20); Calcium 9.2 mg/dl (8.6-10.3); Creatinine Clr Calc Pharmacy 100.5 ml/min; Potassium 3.5 mmol/L (3.5-5.1)
[2024-10-27 09:20] LABS: Hematocrit (blood only) 46.3 % (42.0-52.0); Hemoglobin 16.2 g/dl (14.0-18.0); Mean Corpuscular Hemoglobin 32.8 pg (25.0-34.0); Mean Corpuscular Volume 93.7 fL (80.0-100.0); Mean Platelet Volume 11.5 fL (9.4-12.4); Platelet Count 247 K/uL (130-400); RDW Coefficient of Variation 11.9 % (11.5-14.5); RDW Standard Deviation 41.2 fL (36.4-46.3); Red Blood Count 4.94 M/uL (4.70-6.10); White Blood Count 7.15 K/ul (4.8-10.8)
--- NOTE | 2024-10-27 11:54 | Discharge Summary ---
Date of Service October 27, 2024 Admission HPI Per Admitting Provider 53-year-old male with PMH of diverticulitis, ongoing tobacco use [4 to 5 cigarettes a day for more than 40 years] ongoing alcohol abuse [12 beers a day, last alcohol 5 days ago per patient] who presented to the ED on 08/23 for abdominal pain & underwent CT of abdomen and pelvis which showed splenic infarct of inferior pole and was advised to get admitted for further workup. Patient had some work to be taken care of at home, hence he left AMA. He came in today to the ED to complete the workup. He denies any daily pain today though. Patient denies fever/sore throat/cough/chest pain/nausea/vomiting/pain or burning while passing urine/acute changes in his bowel habit. Patient reports appetite being okay. Patient smokes 4 to 5 cigarettes a day for more than 40 years. Drinks 12 beers a day, last drink 5 days ago. Patient denies recreational drug use. Medications reviewed with the patient at bedside. Full code Plan of care discussed with the patient and his at bedside, they voiced understanding was agreeable to plan of care. Admission Exam Per Admitting Provider GENERAL: Alert and oriented x3. NAD, on RA. HEENT: No pallor, no icterus. Pupils equal, round and reactive to light. Oral mucosa moist. NECK: No JVD, no neck masses. HEART: S1 and S2 heard. Regular rate and rhythm. No murmur, no gallop. RESPIRATORY SYSTEM: Normal AP diameter. No accessory muscle use. No wheezing, no crackles. ABDOMEN: Soft, bowel sounds present, nontender, no distention. CENTRAL NERVOUS SYSTEM: No facial droop. Speech is clear. Obeys simple commands. Moves extremities. EXTREMITIES: No edema, no erythema seen. 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 Discharge Exam Constitutional + well hydrated; no acute distress Eyes PERRL, conjunctivae normal, anicteric sclerae ENMT external ear and nose normal, oropharynx normal Respiratory normal respiratory effort, lungs clear to auscultation Cardiovascular Rate/Rhythm: regular rate and regular rhythm Gastrointestinal (Abdomen) normal bowel sounds, soft, nontender, no hepatosplenomegaly Musculoskeletal no cyanosis or clubbing, extremities motor strength 5/5 Neurologic PERRL, EOMI, accommodation nl, no face palsy, no dysarthria Psychiatric A+Ox3, euthymic affect Discharge Data Allergies Allergy/AdvReac Type Severity Reaction Status Date / Time No Known Allergies Allergy Verified 07/16/22 21:50 Consultations 10/25/24 13:43 ED Decision to Admit Stat 10/25/24 14:19 Consult Rheumatology Routine 10/26/24 11:44 Consult General Surgery Routine Ordered Studies 10/25/24 10:18 CT angio abdomen pelvis w con Stat Hospital Course (1) Splenic infarct: (2) Abdominal pain: Plan Splenic infarct/Celiac saccular aneurysm: Vasculitis: CTA abdomen/pelvis on 10/25/24 noted unchanged size/appearance of acute splenic infarct seen on CT from 10/24/24, findings suggestive of acute vasculitis (involving celiac trunk, proximal common hepatic and splenic arteries) with 11mm celiac saccular aneurysm ESR and CRP elevated. ISIS and ANCA pending Lyme test, Lyme IgG and IgM positive. He reports h/o lyme disease in the past. However, treatment with doxycycline x 14 days was initiated Patient was started on heparin drip and prednisone Rheumatology evaluated. I also discussed patient and reviewed imaging with Vascular sx Dr De Paz at [facility] via transfer center. He recommends ASA 81mg, statin, repeat CTA in 3months and for patient to follow up with Vasc surg at [facility] or [place] in 3months after CT scan. I discussed with Business Administration Instructor Dr Zuñiga and he agrees with stopping anticoagulant and doing ASA 81mg and statin as recommended by vascular Surg did not recommend any surgical intervention for splenic infarct Patient's abdominal pain resolved Patient discharged on Aspirin 81mg daily, Atorvastatin 40mg daily and Prednisone taper Patient's PCP to arrange CT in 3months and Vasc follow up Can follow up with Rheumatology Chronic alcohol abuse: Tobacco abuse: Drinks 12 beers a day, last drink was on [employer] day Smokes 4 to 5 cigarettes a day Counseled extensively regarding smoking cessation and alcohol use Updated at bedside of recommendations and plan Total Time Total Time Spent Total Time Spent (In Minutes): 50 Total Time Includes: Examination of the Patient, Discharge Planning, Medication Reconciliation, Communication With Other Providers and Other Discharge Plan Discharge Items Patient Disposition: Home - Self-Care Reason For Visit: Abdominal pain Discharge Diagnosis: 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 You presented to the hospital with abdominal pain. You were evaluated and found to have splenic infarct and abnormalities in certai n blood vessels in your abdomen. You are being discharged on doxycycline for lyme disease. You were started on Aspirin 81mg daily and atorvastatin 40mg daily. It is very important that you get repeat CT angiogram of abdomen in 3 months and follow up with Vascular surgeon with the result of that. Your Primary Doctor can assist with arranging that. You are being discharged on prednisone taper for the vasculitis. Please ensure follow up with Rheumatology and your Primary Doctor. It is very important you quit smoking as we discussed. It was a pleasure taking care of you. Pending Studies at Discharge: Yes Stand-Alone Forms: My [facility], Smoking Cessation Medications and DC Order Prescriptions: New doxycycline hyclate 100 mg Capsule 100 mg PO BID 13 Days Qty: 26 0RF aspirin 81 mg tablet,delayed release (DR/EC) 81 mg PO DAILY Qty: 90 0RF atorvastatin 40 mg tablet 40 mg PO DAILY Qty: 90 0RF prednisone 20 mg Tablet See Rx Instructions .ROUTE .COMPLEX Qty: 25 0RF Rx Instructions: Take 40mg daily for 5 days, then 30mg daily for 5 days, then 20mg daily for 5 days, then 10mg daily for 5 days Continued ondansetron HCl 8 mg tablet 8 mg PO TID PRN (Reason: Nausea) omeprazole 20 mg capsule,delayed release(DR/EC) 20 mg PO BID Rx Instructions: bid for 2 weeks and then 1 tab po daily prn Discontinued ibuprofen 200 mg capsule 2 cap PO BID Discharge Orders: Discharge Order (Routine); Ordered 10/27/24 Ordered By: Alis Adan Admission Data Admit Date/Time: 10/25/24 14:21 Attending Provider: Alis Adan I. Admit Provider: Chacha Stone Primary Care Provider: Lorri Gilliland Other Providers: Chacha Stone; Ayaan Busby; Tony Dey Other Interventions: Discharge Summary Assessment (RN) Last Done: 10/27/24 12:41
[2024-10-27 12:01] VITALS: BP 112/68; PULSE 74; RESP 18; TEMP 97.7; O2SAT 96
== END 2024-10-27 13:11 | disposition home or self-care (01) | DRG 815 ==
LOC: ED 09:28 → SUATTDRO 14:21 → EDINP 14:21 → 2S 16:41